=== PATIENT | female | born 1975 | race Caucasian/White ===

== ENCOUNTER 2019-01-25 17:06 | Emergency (ER) | payer MEDICAID ==
[2019-01-25] MEDS ORDERED: LORAZEPAM 2 MG/ML 1 ML VIAL ONE (17:38)
[2019-01-25 17:55] LABS: BASOPHILS % (AUTO) 0.8 % (0.0-5.0); EOSINOPHILS % (AUTO) 0.9 % (0.0-8.0); LYMPHOCYTES % (AUTO) 28.5 % (21.0-51.0); MEAN CORPUSCULAR HEMOGLOBIN 27.6 pg (27.0-33.0); MEAN CORPUSCULAR HGB CONC 32.3 g/dL (32.0-36.0); MEAN CORPUSCULAR VOLUME 85.6 fL (79-99); MONOCYTES % (AUTO) 7.1 % (3.0-13.0); NEUTROPHILS % (AUTO) 62.7 % (40.0-77.0); PLATELET COUNT (AUTO) 279 K/uL (130-400); RED BLOOD CELL COUNT(AUTO) 4.56 MIL/uL (4.00-5.50); WHITE BLOOD COUNT (AUTO) 9.8 K/uL (4.8-10.8)
[2019-01-25 18:08] LABS: POTASSIUM 3.9 mmol/L (3.5-5.1)
[2019-01-25 18:13] LABS: ALBUMIN 3.4 g/dL (3.5-5.0); BILIRUBIN,TOTAL 0.1 mg/dL (0.2-1.0); TOTAL PROTEIN, SERUM 7.3 g/dL (6.0-8.3)
== END 2019-01-25 21:41 | disposition home or self-care (01) ==
LOC: EDH 17:06
DX: Z79.899 Other long term (current) drug therapy (principal)
CPT/HCPCS: 36415; 80053; 80185; 85025; 96374; 99283; J2060

== ENCOUNTER 2021-02-14 12:58 | Inpatient (IN) | payer MEDICAID ==
[~2021-02-14] VITALS: Ht 157.5 cm; Wt 75.2 kg
[2021-02-14 13:25] LABS: BASOPHILS % (AUTO) 0.7 % (0.0-5.0); EOSINOPHILS % (AUTO) 1.4 % (0.0-8.0); HEMATOCRIT 39.1 % (36-48); LYMPHOCYTES % (AUTO) 29.2 % (21.0-51.0); MEAN CORPUSCULAR HEMOGLOBIN 29.4 pg (27.0-33.0); MEAN CORPUSCULAR HGB CONC 32.7 g/dL (32.0-36.0); MEAN CORPUSCULAR VOLUME 89.7 fL (79-99); MONOCYTES % (AUTO) 8.3 % (3.0-13.0); NEUTROPHILS % (AUTO) 60.2 % (40.0-77.0); PLATELET COUNT (AUTO) 305 K/uL (130-400); RED BLOOD CELL COUNT(AUTO) 4.36 MIL/uL (4.00-5.50); RED CELL DISTRIBUTION WIDTH 13.6 % (11.0-15.5); WHITE BLOOD COUNT (AUTO) 9.1 K/uL (4.8-10.8)
[2021-02-14 13:27] LABS: BILIRUBIN,URINE Negative (NEGATIVE); COLOR,URINE Yellow (YELLOW); GLUCOSE, URINE (UA) Negative (NEGATIVE); KETONES,URINE Negative (NEGATIVE); LEUKOCYTE ESTERASE ,URINE Negative (NEGATIVE); NITRATE,URINE Negative (NEGATIVE); OCCULT BLOOD,URINE Negative (NEGATIVE); PROTEIN,URINE Negative (NEGATIVE); UROBILINOGEN,URINE 0.2 mg/dL (0.2-1.0)
[2021-02-14 13:32] LABS: CARBON DIOXIDE 27 mmol/L (21-32); CHLORIDE 103 mmol/L (101-111); CREATININE 0.9 mg/dL (0.5-1.5); GLOMERULAR FILTR. RATE CALC 71 mL/min (>60); GLUCOSE,RANDOM 99 mg/dL (70-105); POTASSIUM 4.5 mmol/L (3.5-5.1); SODIUM SERUM 137 mmol/L (136-145); UREA NITROGEN, BLOOD 11 mg/dL (7-18)
[2021-02-14 13:33] LABS: AMPHET/METH SCREEN,URINE NEGATIVE (NEGATIVE); BARBITURATE SCREEN, URINE NEGATIVE (NEGATIVE); BENZODIAZEPINES SCREEN,URINE NEGATIVE (NEGATIVE); CANNABINOID SCREEN,URINE NEGATIVE (NEGATIVE); COCAINE SCREEN,URINE NEGATIVE (NEGATIVE); OPIATE SCREEN,URINE NEGATIVE (NEGATIVE); PHENCYCLIDINE SCREEN,URINE NEGATIVE (NEGATIVE)
[2021-02-14 13:36] LABS: ALANINE AMINOTRANSFERASE 14 U/L (12-78); ALBUMIN 3.2 g/dL (3.5-5.0); ALCOHOL, BLOOD < 3 mg/dL (0-10); ASPARTATE AMINOTRANSFERASE 24 U/L (10-37); BILIRUBIN,TOTAL 0.2 mg/dL (0.2-1.0); PHENYTOIN (DILANTIN) 7.9 mcg/mL (10.0-20.0); TOTAL PROTEIN, SERUM 7.2 g/dL (6.0-8.3)
[2021-02-14 13:40] LABS: ACETAMINOPHEN < 1 mcg/mL (10-30); SALICYLATE < 2.8 mg/dL (2.8-20.0)
[2021-02-14 13:42] LABS: APPEARANCE,URINE SLIGHTLY CLOUDY (CLEAR)
[2021-02-14 13:44] LABS: BACTERIA,URINE Few /HPF (None Seen); RBC,URINE 0-1 /HPF (0-1); WBC,URINE 0-1 /HPF (0-1)
[2021-02-14] MEDS ORDERED: 0.9%NACL 1000ML 1,000 ML IV ONE ×2 (20:08→22:20)
[2021-02-14] MEDS ORDERED: MAG/ALUM/SIMETH 30 ML UDCUP PO PRN (22:00)
[2021-02-14] MEDS ORDERED: ACETAMINOPHEN 325 MG TAB PO PRN ×2 (22:00)
[2021-02-14] MEDS ORDERED: 0.9%NACL 1000ML 1,000 ML IV SCH (22:00)
[2021-02-14] MEDS ORDERED: DiphenhydrAMINE HCL 50 MG/ML VIAL IV PRN (22:00)
[2021-02-14] MEDS ORDERED: HYDROXYZINE 25 MG TABLET PO PRN (22:00)
[2021-02-14] MEDS ORDERED: ONDANSETRON 4MG INJ IV PRN (22:00)
[2021-02-14] MEDS ORDERED: DIPHENHYDRAMINE HCL 25 MG CAPSULE PO PRN (22:00)
[2021-02-14] MEDS ORDERED: GUAIFENESIN-DM 200/20 MG 10 ML PO PRN (22:00)
[2021-02-14] MEDS ORDERED: NITROGLYCERIN 0.4 MG SL TAB SL PRN (22:00)
[2021-02-15 05:13] LABS: BASOPHILS % (AUTO) 0.6 % (0.0-5.0); EOSINOPHILS % (AUTO) 0.5 % (0.0-8.0); HEMATOCRIT 42.3 % (36-48); LYMPHOCYTES % (AUTO) 28.3 % (21.0-51.0); MEAN CORPUSCULAR HEMOGLOBIN 29.2 pg (27.0-33.0); MEAN CORPUSCULAR HGB CONC 31.9 g/dL (32.0-36.0); MEAN CORPUSCULAR VOLUME 91.4 fL (79-99); MONOCYTES % (AUTO) 6.9 % (3.0-13.0); NEUTROPHILS % (AUTO) 63.3 % (40.0-77.0); PLATELET COUNT (AUTO) 314 K/uL (130-400); RED BLOOD CELL COUNT(AUTO) 4.63 MIL/uL (4.00-5.50); RED CELL DISTRIBUTION WIDTH 13.9 % (11.0-15.5); WHITE BLOOD COUNT (AUTO) 8.3 K/uL (4.8-10.8)
[2021-02-15 05:21] LABS: CREATININE 0.8 mg/dL (0.5-1.5); POTASSIUM 4.1 mmol/L (3.5-5.1)
[2021-02-15 05:28] LABS: ALBUMIN 2.7 g/dL (3.5-5.0); CRP QUANTITATIVE 9.6 mg/L (0.00-9.0); MAGNESIUM 2.4 mg/dL (1.80-2.40)
[2021-02-15 05:33] LABS: INR 1.05 (0.85-1.15); PROTHROMBIN TIME 11.4 SEC (9.6-11.6)
[2021-02-15 05:34] LABS: PARTIAL THROMBOPLASTIN TIME 25.9 SEC (26.3-35.5)
[2021-02-15 05:54] LABS: BILIRUBIN,TOTAL 0.2 mg/dL (0.2-1.0); THYROID STIMULATING HORMONE 7.42 uIU/mL (0.36-3.74); TOTAL PROTEIN, SERUM 6.7 g/dL (6.0-8.3)
[2021-02-15 08:00] VITALS: BP 105/66
[2021-02-15] MEDS ORDERED: PHEN100C23 PO (09:34)
[2021-02-15] MEDS ORDERED: LEVE500T19 PO (09:34)
[2021-02-15] MEDS ORDERED: LACO200T2 PO (09:34)
[2021-02-15] MEDS ORDERED: LAMO100T16 PO (09:34)
[2021-02-15 12:00] VITALS: BP 99/56
[2021-02-15] MEDS: LACTATED RINGERS 1000ML 1,000 ML IV SCH ×2 (13:55→22:20)
[2021-02-15 16:00] VITALS: BP 96/60
[2021-02-15 20:00] VITALS: BP 98/48
[2021-02-15] MEDS: SERTRALINE HCL 50 MG TABLET PO SCH (22:19)
[2021-02-16] VITALS: BP 105/62
[2021-02-16 04:00] VITALS: BP 118/72
[2021-02-16 04:49] LABS: BASOPHILS % (AUTO) 0.6 % (0.0-5.0); EOSINOPHILS % (AUTO) 1.7 % (0.0-8.0); HEMATOCRIT 41.5 % (36-48); LYMPHOCYTES % (AUTO) 32.2 % (21.0-51.0); MEAN CORPUSCULAR HEMOGLOBIN 28.4 pg (27.0-33.0); MEAN CORPUSCULAR HGB CONC 31.3 g/dL (32.0-36.0); MEAN CORPUSCULAR VOLUME 90.8 fL (79-99); MONOCYTES % (AUTO) 7.6 % (3.0-13.0); NEUTROPHILS % (AUTO) 57.7 % (40.0-77.0); PLATELET COUNT (AUTO) 307 K/uL (130-400); RED BLOOD CELL COUNT(AUTO) 4.57 MIL/uL (4.00-5.50); RED CELL DISTRIBUTION WIDTH 13.7 % (11.0-15.5); WHITE BLOOD COUNT (AUTO) 8.2 K/uL (4.8-10.8)
[2021-02-16 05:04] LABS: ALBUMIN 2.9 g/dL (3.5-5.0); BILIRUBIN,TOTAL 0.3 mg/dL (0.2-1.0); CREATININE 0.8 mg/dL (0.5-1.5); POTASSIUM 4.2 mmol/L (3.5-5.1); TOTAL PROTEIN, SERUM 6.5 g/dL (6.0-8.3)
[2021-02-16 05:29] LABS: PHENYTOIN (DILANTIN) 38.9 mcg/mL (10.0-20.0)
[2021-02-16] MEDS: LACTULOSE 20 GM/30 ML UDCUP PO PRN (17:02)
[2021-02-16 19:30] VITALS: BP 115/70
[2021-02-16] MEDS: TRAZODONE HCL 50 MG TAB PO SCH (20:48)
[2021-02-16] MEDS: SERTRALINE HCL 50 MG TABLET PO SCH (20:48)
[2021-02-16] MEDS: LACTATED RINGERS 1000ML 1,000 ML IV SCH (20:48)
[2021-02-17 00:08] VITALS: BP 117/54
[2021-02-17 03:36] VITALS: BP 117/52
[2021-02-17 05:33] LABS: EOSINOPHILS % (AUTO) 1.5 % (0.0-8.0); HEMATOCRIT 39.2 % (36-48); LYMPHOCYTES % (AUTO) 28.4 % (21.0-51.0); MEAN CORPUSCULAR HEMOGLOBIN 28.5 pg (27.0-33.0); MEAN CORPUSCULAR HGB CONC 31.9 g/dL (32.0-36.0); MEAN CORPUSCULAR VOLUME 89.5 fL (79-99); MONOCYTES % (AUTO) 8.2 % (3.0-13.0); NEUTROPHILS % (AUTO) 60.8 % (40.0-77.0); PLATELET COUNT (AUTO) 321 K/uL (130-400); RED BLOOD CELL COUNT(AUTO) 4.38 MIL/uL (4.00-5.50); RED CELL DISTRIBUTION WIDTH 13.5 % (11.0-15.5); WHITE BLOOD COUNT (AUTO) 7.2 K/uL (4.8-10.8)
[2021-02-17 06:00] LABS: ALBUMIN 2.8 g/dL (3.5-5.0); BILIRUBIN,DIRECT 0.1 mg/dL (0.0-0.3); BILIRUBIN,TOTAL 0.3 mg/dL (0.2-1.0); CREATININE 0.8 mg/dL (0.5-1.5); POTASSIUM 3.9 mmol/L (3.5-5.1); TOTAL PROTEIN, SERUM 6.3 g/dL (6.0-8.3)
[2021-02-17 06:04] LABS: PHENYTOIN (DILANTIN) 32.9 mcg/mL (10.0-20.0)
[2021-02-17 07:00] VITALS: BP 111/75
[2021-02-17] MEDS ORDERED: LEVOTHYROXINE 25 MCG TABLET PO SCH (10:30)
[2021-02-17 11:45] VITALS: BP 103/60
[2021-02-17 16:00] VITALS: BP 120/55
[2021-02-17 19:38] VITALS: BP 96/57
[2021-02-17] MEDS: SERTRALINE HCL 50 MG TABLET PO SCH (21:18)
[2021-02-17] MEDS: TRAZODONE HCL 50 MG TAB PO SCH (21:18)
[2021-02-17] MEDS: LACTATED RINGERS 1000ML 1,000 ML IV SCH (21:44)
[2021-02-18 01:07] VITALS: BP 121/64
[2021-02-18 05:04] VITALS: BP 144/72
[2021-02-18 05:08] LABS: EOSINOPHILS % (AUTO) 1.7 % (0.0-8.0); HEMATOCRIT 38.8 % (36-48); LYMPHOCYTES % (AUTO) 25.7 % (21.0-51.0); MEAN CORPUSCULAR HGB CONC 32.5 g/dL (32.0-36.0); MEAN CORPUSCULAR VOLUME 89.4 fL (79-99); MONOCYTES % (AUTO) 8.6 % (3.0-13.0); NEUTROPHILS % (AUTO) 62.8 % (40.0-77.0); PLATELET COUNT (AUTO) 316 K/uL (130-400); RED BLOOD CELL COUNT(AUTO) 4.34 MIL/uL (4.00-5.50); RED CELL DISTRIBUTION WIDTH 13.5 % (11.0-15.5); WHITE BLOOD COUNT (AUTO) 9.2 K/uL (4.8-10.8)
[2021-02-18 05:26] LABS: BILIRUBIN,TOTAL 0.3 mg/dL (0.2-1.0); CREATININE 0.8 mg/dL (0.5-1.5); POTASSIUM 3.9 mmol/L (3.5-5.1); TOTAL PROTEIN, SERUM 6.8 g/dL (6.0-8.3)
[2021-02-18 05:30] LABS: PHENYTOIN (DILANTIN) 33.9 mcg/mL (10.0-20.0)
[2021-02-18] MEDS ORDERED: LEVOTHYROXINE 25 MCG TABLET PO SCH (06:00)
[2021-02-18] MEDS: LACTATED RINGERS 1000ML 1,000 ML IV SCH ×3 (06:22→17:45)
[2021-02-18] MEDS: LEVOTHYROXINE 25 MCG TABLET PO SCH (06:22)
[2021-02-18 08:00] VITALS: BP 110/76
[2021-02-18 11:23] VITALS: BP 129/82
[2021-02-18 19:13] VITALS: BP 123/72
[2021-02-18 20:19] VITALS: BP 111/52
[2021-02-18] MEDS: TRAZODONE HCL 50 MG TAB PO SCH (20:28)
[2021-02-18] MEDS: SERTRALINE HCL 50 MG TABLET PO SCH (20:28)
[2021-02-19 00:40] VITALS: BP 132/71
[2021-02-19] MEDS: LACTATED RINGERS 1000ML 1,000 ML IV SCH ×3 (02:24→19:44)
[2021-02-19 03:25] VITALS: BP 128/74
[2021-02-19 04:16] LABS: EOSINOPHILS % (AUTO) 3.1 % (0.0-8.0); HEMATOCRIT 39.6 % (36-48); MEAN CORPUSCULAR HEMOGLOBIN 28.7 pg (27.0-33.0); MEAN CORPUSCULAR HGB CONC 32.1 g/dL (32.0-36.0); MEAN CORPUSCULAR VOLUME 89.4 fL (79-99); MONOCYTES % (AUTO) 10.2 % (3.0-13.0); NEUTROPHILS % (AUTO) 58.4 % (40.0-77.0); PLATELET COUNT (AUTO) 311 K/uL (130-400); RED BLOOD CELL COUNT(AUTO) 4.43 MIL/uL (4.00-5.50); RED CELL DISTRIBUTION WIDTH 13.7 % (11.0-15.5)
[2021-02-19 04:31] LABS: BILIRUBIN,TOTAL 0.2 mg/dL (0.2-1.0); CREATININE 0.8 mg/dL (0.5-1.5); POTASSIUM 4.3 mmol/L (3.5-5.1); TOTAL PROTEIN, SERUM 6.9 g/dL (6.0-8.3)
[2021-02-19] MEDS: LEVOTHYROXINE 25 MCG TABLET PO SCH (06:21)
[2021-02-19 08:00] VITALS: BP 136/75
[2021-02-19 12:00] VITALS: BP 128/68
[2021-02-19] MEDS: GABAPENTIN 100 MG CAPSULE PO SCH ×2 (13:21→19:43)
[2021-02-19] MEDS: LORAZEPAM 2 MG/ML 1 ML VIAL IVP PRN ×2 (13:21→20:22)
[2021-02-19] MEDS ORDERED: MULTIVITAMIN TABLET PO SCH (14:30)
[2021-02-19] MEDS ORDERED: Vitamin B Complex/Vit C/Folic Acid PO SCH (14:30)
[2021-02-19] MEDS: MULTIVITAMIN TABLET PO SCH (18:54)
[2021-02-19] MEDS: Vitamin B Complex/Vit C/Folic Acid PO SCH (18:56)
[2021-02-19] MEDS: SERTRALINE HCL 50 MG TABLET PO SCH (19:43)
[2021-02-19] MEDS: TRAZODONE HCL 50 MG TAB PO SCH (19:43)
[2021-02-19 20:00] VITALS: BP 121/65
[2021-02-20] VITALS (9 sets, daily range): BP systolic 107–157; BP diastolic 51–80
[2021-02-20 05:26] LABS: BASOPHILS % (AUTO) 0.9 % (0.0-5.0); EOSINOPHILS % (AUTO) 2.5 % (0.0-8.0); MEAN CORPUSCULAR HEMOGLOBIN 29.3 pg (27.0-33.0); MEAN CORPUSCULAR HGB CONC 32.5 g/dL (32.0-36.0); MONOCYTES % (AUTO) 9.4 % (3.0-13.0); NEUTROPHILS % (AUTO) 55.9 % (40.0-77.0); PLATELET COUNT (AUTO) 284 K/uL (130-400); RED CELL DISTRIBUTION WIDTH 13.6 % (11.0-15.5); WHITE BLOOD COUNT (AUTO) 7.6 K/uL (4.8-10.8)
[2021-02-20] MEDS: LEVOTHYROXINE 25 MCG TABLET PO SCH (05:52)
[2021-02-20 06:10] LABS: ALBUMIN 2.8 g/dL (3.5-5.0); BILIRUBIN,TOTAL 0.2 mg/dL (0.2-1.0); CREATININE 0.8 mg/dL (0.5-1.5); PHENYTOIN (DILANTIN) 27.2 mcg/mL (10.0-20.0); POTASSIUM 4.1 mmol/L (3.5-5.1); TOTAL PROTEIN, SERUM 6.3 g/dL (6.0-8.3)
[2021-02-20] MEDS ORDERED: LORAZEPAM 1 MG TABLET PO STA (07:22)
[2021-02-20] MEDS: GABAPENTIN 100 MG CAPSULE PO SCH ×3 (08:33→19:59)
[2021-02-20] MEDS: Vitamin B Complex/Vit C/Folic Acid PO SCH (08:33)
[2021-02-20] MEDS: MULTIVITAMIN TABLET PO SCH (08:34)
[2021-02-20] MEDS: LACTATED RINGERS 1000ML 1,000 ML IV SCH ×2 (09:56→19:59)
[2021-02-20] MEDS: TRAZODONE HCL 50 MG TAB PO SCH (19:59)
[2021-02-20] MEDS: SERTRALINE HCL 50 MG TABLET PO SCH (19:59)
[2021-02-20] MEDS: LORAZEPAM 2 MG/ML 1 ML VIAL IVP PRN (23:12)
[2021-02-21] VITALS: BP 102/51
[2021-02-21 04:00] VITALS: BP 120/59
[2021-02-21] MEDS: LACTATED RINGERS 1000ML 1,000 ML IV SCH ×2 (04:36→15:45)
[2021-02-21] MEDS: LEVOTHYROXINE 25 MCG TABLET PO SCH (05:24)
[2021-02-21 06:00] LABS: BASOPHILS % (AUTO) 1.1 % (0.0-5.0); EOSINOPHILS % (AUTO) 3.1 % (0.0-8.0); HEMATOCRIT 38.5 % (36-48); LYMPHOCYTES % (AUTO) 32.4 % (21.0-51.0); MEAN CORPUSCULAR HEMOGLOBIN 28.7 pg (27.0-33.0); MEAN CORPUSCULAR HGB CONC 31.4 g/dL (32.0-36.0); MEAN CORPUSCULAR VOLUME 91.2 fL (79-99); MONOCYTES % (AUTO) 7.9 % (3.0-13.0); NEUTROPHILS % (AUTO) 55.2 % (40.0-77.0); PLATELET COUNT (AUTO) 296 K/uL (130-400); RED BLOOD CELL COUNT(AUTO) 4.22 MIL/uL (4.00-5.50); RED CELL DISTRIBUTION WIDTH 13.6 % (11.0-15.5)
[2021-02-21 06:19] LABS: ALBUMIN 2.8 g/dL (3.5-5.0); BILIRUBIN,TOTAL 0.2 mg/dL (0.2-1.0); CREATININE 0.8 mg/dL (0.5-1.5); PHENYTOIN (DILANTIN) 18.8 mcg/mL (10.0-20.0); TOTAL PROTEIN, SERUM 6.4 g/dL (6.0-8.3)
[2021-02-21 07:00] VITALS: BP 118/62
[2021-02-21] MEDS: Vitamin B Complex/Vit C/Folic Acid PO SCH (09:28)
[2021-02-21] MEDS: PHENYTOIN SODIUM 100 MG ERCAP PO SCH ×3 (09:28→21:30)
[2021-02-21] MEDS: MULTIVITAMIN TABLET PO SCH (09:28)
[2021-02-21] MEDS: GABAPENTIN 100 MG CAPSULE PO SCH ×3 (09:31→21:30)
[2021-02-21 11:30] VITALS: BP 118/63
[2021-02-21 16:00] VITALS: BP 110/60
[2021-02-21 20:00] VITALS: BP 102/36
[2021-02-21] MEDS: SERTRALINE HCL 50 MG TABLET PO SCH (21:30)
[2021-02-21] MEDS: TRAZODONE HCL 50 MG TAB PO SCH (21:30)
[2021-02-22] VITALS (7 sets, daily range): BP systolic 102–137; BP diastolic 50–69
[2021-02-22] MEDS: LACTATED RINGERS 1000ML 1,000 ML IV SCH ×4 (01:58→22:42)
[2021-02-22] MEDS ORDERED: LORAZEPAM 2 MG/ML 1 ML VIAL IVP PRN (04:45)
[2021-02-22 05:01] LABS: BASOPHILS % (AUTO) 0.9 % (0.0-5.0); EOSINOPHILS % (AUTO) 2.3 % (0.0-8.0); MEAN CORPUSCULAR HEMOGLOBIN 28.8 pg (27.0-33.0); MEAN CORPUSCULAR HGB CONC 31.7 g/dL (32.0-36.0); MEAN CORPUSCULAR VOLUME 90.7 fL (79-99); MONOCYTES % (AUTO) 8.6 % (3.0-13.0); PLATELET COUNT (AUTO) 311 K/uL (130-400); RED BLOOD CELL COUNT(AUTO) 4.52 MIL/uL (4.00-5.50); RED CELL DISTRIBUTION WIDTH 13.7 % (11.0-15.5); WHITE BLOOD COUNT (AUTO) 8.1 K/uL (4.8-10.8)
[2021-02-22 05:22] LABS: ALBUMIN 3.1 g/dL (3.5-5.0); BILIRUBIN,TOTAL 0.3 mg/dL (0.2-1.0); CREATININE 0.8 mg/dL (0.5-1.5); POTASSIUM 3.8 mmol/L (3.5-5.1)
[2021-02-22] MEDS: LEVOTHYROXINE 25 MCG TABLET PO SCH (06:05)
[2021-02-22] MEDS: LACTULOSE 20 GM/30 ML UDCUP PO PRN (06:19)
[2021-02-22] MEDS: PHENYTOIN SODIUM 100 MG ERCAP PO SCH ×2 (09:00→15:11)
[2021-02-22] MEDS: GABAPENTIN 100 MG CAPSULE PO SCH ×3 (10:30→22:00)
[2021-02-22] MEDS: Vitamin B Complex/Vit C/Folic Acid PO SCH (10:30)
[2021-02-22] MEDS: MULTIVITAMIN TABLET PO SCH (10:31)
[2021-02-22] MEDS ORDERED: PHENYTOIN SODIUM 100 MG ERCAP PO SCH (21:00)
[2021-02-22] MEDS: SERTRALINE HCL 50 MG TABLET PO SCH (21:59)
[2021-02-22] MEDS: TRAZODONE HCL 50 MG TAB PO SCH (21:59)
[2021-02-23 03:00] VITALS: BP 110/60
[2021-02-23 05:17] LABS: BASOPHILS % (AUTO) 0.9 % (0.0-5.0); EOSINOPHILS % (AUTO) 2.1 % (0.0-8.0); HEMATOCRIT 38.9 % (36-48); LYMPHOCYTES % (AUTO) 30.9 % (21.0-51.0); MEAN CORPUSCULAR HEMOGLOBIN 28.8 pg (27.0-33.0); MEAN CORPUSCULAR HGB CONC 31.9 g/dL (32.0-36.0); MEAN CORPUSCULAR VOLUME 90.3 fL (79-99); MONOCYTES % (AUTO) 8.1 % (3.0-13.0); NEUTROPHILS % (AUTO) 57.9 % (40.0-77.0); PLATELET COUNT (AUTO) 303 K/uL (130-400); RED BLOOD CELL COUNT(AUTO) 4.31 MIL/uL (4.00-5.50); RED CELL DISTRIBUTION WIDTH 13.5 % (11.0-15.5); WHITE BLOOD COUNT (AUTO) 7.7 K/uL (4.8-10.8)
[2021-02-23 05:47] LABS: ALBUMIN 2.8 g/dL (3.5-5.0); BILIRUBIN,TOTAL 0.2 mg/dL (0.2-1.0); CREATININE 0.7 mg/dL (0.5-1.5); POTASSIUM 3.9 mmol/L (3.5-5.1); TOTAL PROTEIN, SERUM 6.5 g/dL (6.0-8.3)
[2021-02-23] MEDS: LEVOTHYROXINE 25 MCG TABLET PO SCH (06:39)
[2021-02-23 08:00] VITALS: BP 122/55
[2021-02-23] MEDS: PHENYTOIN SODIUM 100 MG ERCAP PO SCH ×2 (08:34→21:36)
[2021-02-23] MEDS: GABAPENTIN 100 MG CAPSULE PO SCH (08:34)
[2021-02-23] MEDS: MULTIVITAMIN TABLET PO SCH (08:34)
[2021-02-23] MEDS: Vitamin B Complex/Vit C/Folic Acid PO SCH (08:34)
[2021-02-23 11:27] VITALS: BP 113/62
[2021-02-23] MEDS ORDERED: PHENYTOIN SODIUM 100 MG ERCAP PO SCH (14:30)
[2021-02-23 16:00] VITALS: BP 112/59
[2021-02-23] MEDS: LACTATED RINGERS 1000ML 1,000 ML IV SCH ×2 (16:11→17:36)
[2021-02-23 20:00] VITALS: BP 121/65
[2021-02-23] MEDS: TRAZODONE HCL 50 MG TAB PO SCH (21:36)
[2021-02-23] MEDS: SERTRALINE HCL 50 MG TABLET PO SCH (21:36)
[2021-02-24] VITALS: BP 101/50
[2021-02-24] MEDS: LACTATED RINGERS 1000ML 1,000 ML IV SCH ×3 (01:00→15:54)
[2021-02-24 04:00] VITALS: BP 116/62
[2021-02-24] MEDS: PHENYTOIN SODIUM 100 MG ERCAP PO SCH ×3 (06:06→21:27)
[2021-02-24] MEDS: LEVOTHYROXINE 25 MCG TABLET PO SCH (06:06)
[2021-02-24 06:24] LABS: BASOPHILS % (AUTO) 0.8 % (0.0-5.0); HEMATOCRIT 41.3 % (36-48); LYMPHOCYTES % (AUTO) 26.8 % (21.0-51.0); MEAN CORPUSCULAR HEMOGLOBIN 29.1 pg (27.0-33.0); MEAN CORPUSCULAR HGB CONC 32.4 g/dL (32.0-36.0); MEAN CORPUSCULAR VOLUME 89.8 fL (79-99); MONOCYTES % (AUTO) 7.1 % (3.0-13.0); PLATELET COUNT (AUTO) 314 K/uL (130-400); RED CELL DISTRIBUTION WIDTH 13.6 % (11.0-15.5); WHITE BLOOD COUNT (AUTO) 8.6 K/uL (4.8-10.8)
[2021-02-24 06:45] LABS: ALBUMIN 3.1 g/dL (3.5-5.0); BILIRUBIN,TOTAL 0.3 mg/dL (0.2-1.0); CREATININE 0.9 mg/dL (0.5-1.5); POTASSIUM 4.2 mmol/L (3.5-5.1)
[2021-02-24] MEDS: MULTIVITAMIN TABLET PO SCH (08:49)
[2021-02-24] MEDS: GABAPENTIN 100 MG CAPSULE PO SCH ×2 (08:49→21:28)
[2021-02-24] MEDS: Vitamin B Complex/Vit C/Folic Acid PO SCH (08:50)
[2021-02-24] MEDS ORDERED: GABAPENTIN 100 MG CAPSULE PO SCH ×2 (09:00)
[2021-02-24 20:00] VITALS: BP 124/62
[2021-02-24] MEDS: SERTRALINE HCL 50 MG TABLET PO SCH (21:27)
[2021-02-24] MEDS: TRAZODONE HCL 50 MG TAB PO SCH (21:27)
[2021-02-25] VITALS: BP 113/60
[2021-02-25 04:00] VITALS: BP 111/65
[2021-02-25 05:41] LABS: BASOPHILS % (AUTO) 1.1 % (0.0-5.0); EOSINOPHILS % (AUTO) 2.2 % (0.0-8.0); HEMATOCRIT 37.4 % (36-48); LYMPHOCYTES % (AUTO) 24.4 % (21.0-51.0); MEAN CORPUSCULAR HEMOGLOBIN 28.4 pg (27.0-33.0); MEAN CORPUSCULAR HGB CONC 31.6 g/dL (32.0-36.0); MEAN CORPUSCULAR VOLUME 89.9 fL (79-99); MONOCYTES % (AUTO) 9.4 % (3.0-13.0); NEUTROPHILS % (AUTO) 62.6 % (40.0-77.0); PLATELET COUNT (AUTO) 294 K/uL (130-400); RED BLOOD CELL COUNT(AUTO) 4.16 MIL/uL (4.00-5.50); RED CELL DISTRIBUTION WIDTH 13.6 % (11.0-15.5); WHITE BLOOD COUNT (AUTO) 7.6 K/uL (4.8-10.8)
[2021-02-25] MEDS: GABAPENTIN 100 MG CAPSULE PO SCH ×3 (06:02→20:51)
[2021-02-25] MEDS: LEVOTHYROXINE 25 MCG TABLET PO SCH (06:02)
[2021-02-25 06:16] LABS: ALBUMIN 2.8 g/dL (3.5-5.0); BILIRUBIN,TOTAL 0.3 mg/dL (0.2-1.0); CREATININE 0.8 mg/dL (0.5-1.5); PHENYTOIN (DILANTIN) 15.1 mcg/mL (10.0-20.0); POTASSIUM 3.7 mmol/L (3.5-5.1); TOTAL PROTEIN, SERUM 6.9 g/dL (6.0-8.3)
[2021-02-25 08:00] VITALS: BP 109/63
[2021-02-25] MEDS: Vitamin B Complex/Vit C/Folic Acid PO SCH (08:38)
[2021-02-25] MEDS: PHENYTOIN SODIUM 100 MG ERCAP PO SCH ×2 (08:41→20:51)
[2021-02-25] MEDS: MULTIVITAMIN TABLET PO SCH (08:41)
[2021-02-25 12:00] VITALS: BP 105/52
[2021-02-25 16:00] VITALS: BP 135/64
[2021-02-25 20:00] VITALS: BP 124/62
[2021-02-25] MEDS: TRAZODONE HCL 50 MG TAB PO SCH (20:51)
[2021-02-25] MEDS: SERTRALINE HCL 50 MG TABLET PO SCH (20:51)
[2021-02-26] VITALS (7 sets, daily range): BP systolic 94–115; BP diastolic 39–67
[2021-02-26] MEDS: PHENYTOIN SODIUM 100 MG ERCAP PO SCH ×3 (05:23→20:50)
[2021-02-26] MEDS: LEVOTHYROXINE 25 MCG TABLET PO SCH (05:23)
[2021-02-26] MEDS: GABAPENTIN 100 MG CAPSULE PO SCH ×3 (05:23→20:51)
[2021-02-26] MEDS: Vitamin B Complex/Vit C/Folic Acid PO SCH (08:18)
[2021-02-26] MEDS: MULTIVITAMIN TABLET PO SCH (08:19)
[2021-02-26] MEDS: LEVETIRACETAM 500 MG TABLET PO SCH ×2 (09:10→20:50)
[2021-02-26] MEDS: SERTRALINE HCL 50 MG TABLET PO SCH (20:50)
[2021-02-26] MEDS: TRAZODONE HCL 50 MG TAB PO SCH (20:51)
[2021-02-27 02:56] VITALS: BP 104/81
[2021-02-27] MEDS: LEVOTHYROXINE 25 MCG TABLET PO SCH (06:38)
[2021-02-27 06:59] VITALS: BP 96/64
[2021-02-27] MEDS ORDERED: GABAPENTIN 100 MG CAPSULE PO SCH (09:00)
[2021-02-27] MEDS: Vitamin B Complex/Vit C/Folic Acid PO SCH (09:45)
[2021-02-27] MEDS: LEVETIRACETAM 500 MG TABLET PO SCH (09:46)
[2021-02-27] MEDS: PHENYTOIN SODIUM 100 MG ERCAP PO SCH (09:46)
[2021-02-27] MEDS: MULTIVITAMIN TABLET PO SCH (09:46)
[2021-02-27 11:17] VITALS: BP 98/57
== END 2021-02-27 12:50 | DRG 817 ==
LOC: EDH 12:58 → EDHIP 12:59 → 3CH 02-15 08:13
PROVIDERS: ADMIT Family Medicine; ATTEND Family Medicine
DX: T42.6X2A Poisoning by other antiepileptic and sedative-hypnotic drugs, intentional self-harm, initial encounter (principal); T42.0X2A Poisoning by hydantoin derivatives, intentional self-harm, initial encounter; E66.9 Obesity, unspecified; F41.9 Anxiety disorder, unspecified; R40.0 Somnolence; R27.0 Ataxia, unspecified; F32.9 Major depressive disorder, single episode, unspecified; R29.810 Facial weakness; Z20.822 Contact with and (suspected) exposure to COVID-19; F60.7 Dependent personality disorder; G40.909 Epilepsy, unspecified, not intractable, without status epilepticus; W19.XXXA Unspecified fall, initial encounter; Z79.899 Other long term (current) drug therapy; Z85.528 Personal history of other malignant neoplasm of kidney; Y92.89 Other specified places as the place of occurrence of the external cause; Z68.30 Body mass index [BMI] 30.0-30.9, adult; R45.851 Suicidal ideations
CPT/HCPCS: 36415; 70450; 70551; 80053; 80177; 80185; 80305; 81001; 82140; 82248; 83735; 84100; 84439; 84443; 85025; 85378; 85610; 85730; 86140; 87426; G0378; G0481; J2060; J2405; J7030; J7120; U0003

== ENCOUNTER 2022-05-07 12:55 | Emergency (ER) | payer MEDICAID ==
[~2022-05-07] VITALS: Ht 157.5 cm; Wt 68.9 kg
[~2022-05-07 12:55] MED LIST: LACO200T2 PO; LAMO100T16 PO; LEVE500T19 PO; PHEN100C23 PO
[2022-05-07 13:02] VITALS: BP 118/69
== END 2022-05-07 14:01 | disposition left against medical advice (07) ==
LOC: EDH 12:55
DX: R42 Dizziness and giddiness (principal); Z53.21 Procedure and treatment not carried out due to patient leaving prior to being seen by health care provider

== ENCOUNTER 2022-10-05 09:39 | Emergency (ER) | payer MEDICAID ==
[~2022-10-05] VITALS: Ht 157.5 cm; Wt 68.9 kg
[2022-10-05 11:20] LABS: BASOPHILS % (AUTO) 1.1 % (0.0-5.0); EOSINOPHILS % (AUTO) 1.6 % (0.0-8.0); HEMATOCRIT 41.4 % (36-48); LYMPHOCYTES % (AUTO) 28.7 % (21.0-51.0); MEAN CORPUSCULAR HEMOGLOBIN 29.3 pg (27.0-33.0); MEAN CORPUSCULAR HGB CONC 32.1 g/dL (32.0-36.0); MEAN CORPUSCULAR VOLUME 91.2 fL (79-99); MONOCYTES % (AUTO) 7.1 % (3.0-13.0); NEUTROPHILS % (AUTO) 61.4 % (40.0-77.0); PLATELET COUNT (AUTO) 266 K/uL (130-400); RED BLOOD CELL COUNT(AUTO) 4.54 MIL/uL (4.00-5.50); WHITE BLOOD COUNT (AUTO) 7.1 K/uL (4.8-10.8)
[2022-10-05] MEDS ORDERED: HYDROCORTISONE 1% CREAM 28G TP SCH (11:30)
[2022-10-05 11:43] LABS: ALANINE AMINOTRANSFERASE 13 U/L (12-78); ALBUMIN 3.1 g/dL (3.5-5.0); ASPARTATE AMINOTRANSFERASE 18 U/L (10-37); CARBON DIOXIDE 34 mmol/L (21-32); CHLORIDE 103 mmol/L (101-111); GLOMERULAR FILTR. RATE CALC 63 mL/min (>60); GLUCOSE,RANDOM 82 mg/dL (70-105); POTASSIUM 4.2 mmol/L (3.5-5.1); SODIUM SERUM 138 mmol/L (136-145); TOTAL PROTEIN, SERUM 6.8 g/dL (6.0-8.3); UREA NITROGEN, BLOOD 14 mg/dL (7-18)
[2022-10-05] MEDS ORDERED: HYDR28.32 TP (11:51)
[2022-10-05 12:13] LABS: CRP QUANTITATIVE < 2.00 mg/L (0.00-9.0)
[2022-10-05 12:17] VITALS: BP 145/73
== END 2022-10-05 12:18 | disposition home or self-care (01) ==
LOC: EDH 09:39
DX: R21 Rash and other nonspecific skin eruption (principal); Z79.899 Other long term (current) drug therapy; Z98.890 Other specified postprocedural states
CPT/HCPCS: 36415; 80053; 85025; 86140